=== PATIENT | female | born 1990 | race Caucasian/White ===

== ENCOUNTER 2016-09-02 11:42 | Emergency (ER) | payer MEDICAID ==
[2016-09-02 12:01] VITALS: BP 129/67; PULSE 109
[2016-09-02] MEDS ORDERED: DECADRON 10MG INJ. IM ONE (12:10)
[2016-09-02] MEDS ORDERED: TYLENOL 325 MG PO ONE (12:10)
[2016-09-02] MEDS ORDERED: TYLENOL 325 MG ONE (12:14)
[2016-09-02] MEDS ORDERED: DECADRON 10MG INJ. ONE (12:15)
--- NOTE | 2016-09-02 12:17 | ERPHSYRPT ---
- History of Present Illness Time Seen by Provider: 09/02/16 11:52 Source: patient Patient Subjective Stated Complaint: PT STATES SHE HAS HAD SCIATIC BACK PAIN IN THE PAST AND IS CONCERNED THAT IS HER PROBLEM TODAY. PT STATES SHE IS 7 MONTHS . DENIES ANY INJURY, DENIES ANY DYSURIA. Triage Nursing Assessment: PT PINK, WARM, DRY. UTERUS NOTED. NO DEFORMITIES TO BACK. PT AMBULATED INTO ER PUSHING A BABY STROLLER WITHOUT DIFFICULTY. Physician History: CC: back pain Hx: 25 y/o patient of Dr Mcelroy recently moved here from [place]. Saw Dr Mcelroy last week and is 25 weeks . She has hx of sciatica in the past. She has sharp shooting low back pain to right leg worse with movement since last night similar to prior sciatica. She has not taken any medication. In the past steroids helped. No vaginal bleeding, CTX, dysuria, hematuria, or sign of related problem. Timing/Duration: yesterday Fever Severity: severe Allergies/Adverse Reactions: No Known Drug Allergies Allergy (Unverified 09/02/16 12:01) Home Medications: Vits W-Ca,Fe,FA(<1Mg) [] 1 each PO DAILY 09/02/16 [History] Hx Tetanus, Diphtheria Vaccination/Date Given: Yes (UNKNOWN) Hx Influenza Vaccination/Date Given: No Hx Pneumococcal Vaccination/Date Given: No Immunizations Up to Date: Yes - Review of Systems Constitutional: No Fever, No Chills Eyes: No Symptoms Ears, Nose, & Throat: No Symptoms Respiratory: No Cough Cardiac: No Chest Pain Abdominal/Gastrointestinal: No Abdominal Pain, No Nausea, No Vomiting Genitourinary Symptoms: No Dysuria, No Hematuria, No Incontinence, No Flank Pain Musculoskeletal: Back Pain Skin: No Rash Neurological: No Focal Weakness All Other Systems: Reviewed and Negative - Past Medical History Pertinent Past Medical History: No - Past Surgical History Past Surgical History: No - Social History Smoking Status: Current every day smoker How long have you smoked: 8 Exposure to second hand smoke: No Drug Use: none Patient Lives Alone: No - Female History Hx Last Menstrual Period: MAR 03 2016 Expected Date of Delivery: 12/10/16 Gestational Age: 7 - Nursing Vital Signs Nursing Vital Signs: Initial Vital Signs Temperature 98.1 F Temperature Source Oral Pulse Rate 109 Respiratory Rate 18 Blood Pressure [Right Arm] 129/67 Pain Intensity [Right Lower 4 Back] Pain Intensity 4 - Physical Exam General Appearance: alert Eye Exam: PERRL/EOMI ENT Exam: normal ENT inspection Neck Exam: normal inspection, non-tender, supple Respiratory Exam: normal breath sounds, lungs clear Cardiovascular/Chest Exam: regular rate/rhythm Gastrointestinal/Abdominal Exam: soft, no distention Neurologic Exam: alert, oriented x 3, cooperative, sensation nml, other (2+ patellar MSR's bilateral), No motor deficits Skin Exam: warm, dry, No rash Comments: right lowback tender to palpation. - Course Nursing assessment & vital signs reviewed: Yes Ordered Tests: Active Orders 24 hr Category Date Time Status Clean Catch Urine Specimen STAT Care 09/02/16 12:09 Active Heart Tones-ED STAT Care 09/02/16 12:09 Active UA Stat Lab 09/02/16 12:09 Completed Medication Summary Discontinued Medications Generic Name Dose Route Start Last Admin Trade Name Darriusq PRN Reason Stop Dose Admin Acetaminophen 650 mg 09/02/16 12:10 09/02/16 12:16 Tylenol 325 Mg PO 09/02/16 12:11 650 mg STAT ONE Administration Acetaminophen Confirm 09/02/16 12:14 Tylenol 325 Mg Administered 09/02/16 12:15 Dose 650 mg .ROUTE .STK-MED ONE Dexamethasone Sodium Phosphate 10 mg 09/02/16 12:10 09/02/16 12:16 Decadron 10mg Inj. IM 09/02/16 12:11 10 mg STAT ONE Administration Dexamethasone Sodium Phosphate Confirm 09/02/16 12:15 Decadron 10mg Inj. Administered 09/02/16 12:16 Dose 10 mg .ROUTE .STK-MED ONE Lab/Rad Data: Laboratory Results 09/02/16 Range/Units 12:09 Ur Collection Type CLEAN CATCH Urine Color YELLOW (YELLOW) Urine Appearance CLOUDY (CLEAR) Urine pH 6.0 (5-6) Ur Specific [place] 1.025 (1.005-1.025) Urine Protein NEGATIVE (Negative) Urine Glucose (UA) NEGATIVE (NEGATIVE) mg/dL Urine Ketones NEGATIVE (NEGATIVE) Urine Nitrite NEGATIVE (NEGATIVE) Urine Bilirubin NEGATIVE (NEGATIVE) Urine Urobilinogen 1 (0-1) mg/dL Urine WBC (Auto) NEGATIVE (NEGATIVE) Urine RBC (Auto) NEGATIVE (0-5) River/ul Specimen Received 09/02/16 1220 - Progress Progress Note: 09/02/16 12:17 Will check urine. Advised see Dr Mcelroy to consider physical therapy. APAP decadron given here. 09/02/16 12:32 Back viktoriya instr given. Counseled pt/family regarding: lab results, diagnosis, need for follow-up - Departure Time of Disposition: 12:32 Departure Disposition: Home Clinical Impression: Sciatica, 25 weeks gestation of Condition: Stable Critical Care Time: No Referrals: DREW MORALES MD [Primary Care Provider] - JUAN MCELROY [ACTIVE STAFF] - Instructions: Back Pain With Sciatica, -- Discomforts and Remedies Additional Instructions: Take acetaminophen 650mg every 6 hours for pain. Warm or cool compresses. CAll to see Dr Mcelroy tomorrow. Return for contractions, vaginal bleeding or concerns.
[2016-09-02 12:29] LABS: COMPLETE URINE MICROSCOPIC? NO; Collection Type CLEAN CATCH
== END 2016-09-02 12:50 | disposition home or self-care (01) ==
LOC: ED 11:42
DX: M54.30 Sciatica, unspecified side (principal); Z33.1 Pregnant state, incidental; Z3A.25 25 weeks gestation of pregnancy
CPT/HCPCS: 81002; 96372; 99284; J1100; A9270-GY

== ENCOUNTER 2016-11-08 17:46 | Observation (INO) | payer MEDICAID ==
[2016-11-08 18:22] LABS: Bilirubin NEGATIVE (NEGATIVE); Blood NEGATIVE Ery/ul (0-5); COMPLETE URINE MICROSCOPIC? NO; Collection Type CLEAN CATCH; Glucose NEGATIVE (NEGATIVE); Leukocyte Esterase NEGATIVE (NEGATIVE)
[2016-11-08] MEDS ORDERED: Sodium Chloride 0.9% 1000 ML 1,000 ML IV STA (19:36)
[2016-11-08] MEDS ORDERED: Sodium Chloride 0.9% 1000 ML 1,000 ML ONE (19:40)
[2016-11-08 20:48] VITALS: BP 124/74; PULSE 84; O2SAT 99
[2016-11-08] MEDS ORDERED: TUCKS TP PRN (21:17)
== END 2016-11-08 22:31 ==
LOC: OB 17:46 → UNDOADMOB 17:46 → UNDODISOB 22:31
PROVIDERS: ADMIT Family Medicine; ATTEND Family Medicine
DX: Z34.83 Encounter for supervision of other normal pregnancy, third trimester (principal)
CPT/HCPCS: 80307; 81002; 87081; A9270-GY

== ENCOUNTER 2016-11-13 10:54 | Observation (INO) | payer MEDICAID ==
[2016-11-13 11:29] VITALS: BP 120/71; PULSE 93
== END 2016-11-13 12:25 | disposition home or self-care (01) ==
LOC: OB 10:54
PROVIDERS: ADMIT Family Medicine; ATTEND Family Medicine
DX: Z34.83 Encounter for supervision of other normal pregnancy, third trimester (principal)
CPT/HCPCS: 59025; G0378

== ENCOUNTER 2016-11-27 12:54 | Observation (INO) | payer MEDICAID ==
[2016-11-27 13:36] VITALS: BP 131/82; PULSE 88
--- NOTE | 2016-11-27 14:06 | XRAY ---
Indication: Decreased movement. Gestational age 35 weeks 6 days. Doppler ultrasound of the umbilical cord was performed. PSV is 45-59 cm/s. PDV is 18-23 cm/s. Systolic/diastolic ratio is 2.2-2.8 (50th percentile is 2.39 and 95th percentile is 3.41).
== END 2016-11-27 15:15 | disposition home or self-care (01) ==
LOC: OB 12:54
PROVIDERS: ADMIT Family Medicine; ATTEND Family Medicine
DX: Z34.83 Encounter for supervision of other normal pregnancy, third trimester (principal)
CPT/HCPCS: 59025; 76815; G0378

== ENCOUNTER 2017-03-04 10:37 | Day surgery (SDC) | payer MEDICAID, OTHER ==
--- NOTE | 2017-03-04 08:33 | HP ---
DATE OF SURGERY: 03/04/2017 HISTORY OF PRESENT ILLNESS: The patient is a 26 year-old who has four kids and undesired fertility. She desires tubal at this time. PAST MEDICAL HISTORY: She had pain right leg in the past. PAST SURGICAL HISTORY: Dental. MEDICATIONS: Ibuprofen. She had been on hydrocodone recently. ALLERGIES: NKDA. FAMILY HISTORY: History of congestive heart failure, kidney failure, chronic obstructive pulmonary disease, diabetes. SOCIAL HISTORY: Less than a pack per day smoker. Denies alcohol use. REVIEW OF SYSTEMS: Twelve systems reviewed per admission assessment. No chest pain or palpitations other systems negative or noncontributory as above and per preadmission questionnaire. PHYSICAL EXAMINATION: GENERAL: No acute distress. HEENT: Sclerae nonicteric. NECK: No JVD. CHEST: Equal excursion, nonlabored breathing. CVS: Regular rate and rhythm. ABDOMEN: Soft. No peritoneal signs. EXTREMITIES: No significant edema. NEURO: Alert, moving extremities symmetrically. No gross motor deficits noted. IMPRESSION: Undesired fertility. The patient desires laparoscopic bilateral tubal cauterization. She was explained the procedure in detail but not limited to risk of bleeding, infection, risk of trocar injury or hernia, small risk of bowel, bladder or blood vessel injury or ureter injury possibly requiring other procedures, risk of scar formation, adhesions or obstruction. She understands short of removing her uterus and ovaries, bilateral tubal performed with ligating, clipping, cauterizing there is up to 4% risk of tubal failure rate. Should she feel she is down the road she should check and she completely understands this. She understands that this tubal is successful which it is the majority of the time would be permanent but could consider reversal if she changes her mind down the road. Our group does not do tubal reversals but we could refer her to another physician if she changed her mind. She understands as well as general risk of anesthesia, deep venous thrombosis, pulmonary embolism, pneumonia but not limited to, possible need to convert to open. She understands all the above but not limited to, will proceed with laparoscopic bilateral tubal cauterization possible open.
[~2017-03-04 10:37] MED LIST: CEFAZOLIN 2 GM-D5W BAG** 2 GM/50 ML ML IV ONE; CEFAZOLIN 2 GM-D5W BAG** 2 GM/50 ML ML IV SCH; Lactated Ringers 1,000 ML IV ONE; Lactated Ringers 1,000 ML IV SCH; Sensorcaine 0.25% 10 ML ONE
[2017-03-04] MEDS ORDERED: SUBLIMAZE 100 MCG/2 ML IV ONE (10:38)
[2017-03-04] MEDS ORDERED: TORAdol 30 mg Injection IV ONE (10:38)
[2017-03-04] MEDS ORDERED: Zemuron 100 MG/10 ML IV ONE (10:38)
[2017-03-04] MEDS ORDERED: Zofran 4 MG/2 ML VIAL IV ONE (10:38)
[2017-03-04] MEDS ORDERED: Quelicin Fliptop 200 MG/10 ML IV ONE (10:38)
[2017-03-04] MEDS ORDERED: Decadron 4 MG INJ IV ONE (10:38)
[2017-03-04] MEDS ORDERED: Versed 2 MG/2 ML Injection IV ONE (10:38)
[2017-03-04] MEDS ORDERED: BRIDION 200MG/2ML IV ONE (10:38)
[2017-03-04] MEDS ORDERED: DIPRIVAN 200 MG/20 ML IV ONE (10:38)
[2017-03-04] MEDS ORDERED: SUBLIMAZE 100 MCG/2 ML ONE (13:51)
[2017-03-04] MEDS ORDERED: Zofran 4 MG/2 ML VIAL ONE (13:51)
--- NOTE | 2017-03-04 14:56 | OP ---
SURGERY DATE/TIME: 03/04/2017 1241 PREOPERATIVE DIAGNOSIS: Undesired fertility. POSTOPERATIVE DIAGNOSIS: Undesired fertility. PROCEDURE: Laparoscopic bilateral tubal coagulation and cauterization. SURGEON: Dr. Anthony Heath. ANESTHESIA: General. ESTIMATED BLOOD LOSS: Minimal. INDICATIONS: As noted above. Risks and benefits explained in detail and not limited to and consent obtained. DESCRIPTION OF PROCEDURE AND FINDINGS: The patient is taken to the operating room. General anesthesia was introduced. Abdomen prepped and draped in usual sterile fashion. After official time out and no disagreement with planned procedure, a transverse incision made at supraumbilical area. Fascia grasped and pulled upwards. Veress needle inserted and tested with saline. Pneumoperitoneum accomplished. Insufflating opening pressure 0 to 15. A 5 mm bladeless port and camera were inserted without difficulty. There was no evidence of any intra-abdominal injury secondary to trocar insertion. It should be noted that the patient did have some serosanguinous fluid down in the pelvis. She apparently had a hemorrhagic ruptured left ovarian cyst with some hemorrhagic fluid. The 5 mm right lower quadrant and 5 mm left lower quadrant ports were placed. The uterus is elevated upwards elevating the tube well away from the pelvic side wall and viscera. Initially planned to use Kleppinger however it was not functional so the next best option would be the LigaSure device. The LigaSure device was then used to seal coagulate the tube across 4 cm segment of the tube elevating it well away from the retroperitoneum well away from the pelvic side wall and viscera. It took some time but it was slowly and carefully accomplished. This was again repeated on the left side. Pictures were taken. Bilateral tubal cauterization coagulation had been accomplished. The small hemorrhagic fluid that was there prior to the procedure had been irrigated out, washed out and good hemostasis noted. Pneumoperitoneum decompressed. The port is removed. Skin incision closed with 4-0 Vicryl. 0.25% Marcaine local injected along the skin incision fascial defects. The patient tolerated the procedure well. There were no immediate complications. It should be noted that there was no family available to discuss the findings with out in the waiting area.
[2017-03-04 15:41] VITALS: BP 112/60; PULSE 64; O2SAT 94
== END 2017-03-04 15:50 | disposition home or self-care (01) ==
LOC: SDC 10:37
PROVIDERS: ATTEND Surgery
PROC: 0U574ZZ Destruction of Bilateral Fallopian Tubes, Percutaneous Endoscopic Approach (ICD-10-PCS; principal; 2017-03-04)
DX: Z30.2 Encounter for sterilization (principal)
CPT/HCPCS: 00851; 84703; J0330; J0690; J1100; J1885; J2250; J2405; J2704; J3010

== ENCOUNTER 2017-05-24 13:54 | Emergency (ER) | payer OTHER ==
[2017-05-24 14:17] VITALS: O2SAT 98
[2017-05-24] MEDS ORDERED: TYLENOL 325 MG PO ONE (14:45)
[2017-05-24] MEDS ORDERED: TYLENOL 325 MG ONE (14:49)
--- NOTE | 2017-05-24 14:52 | ERPHSYRPT ---
- History of Present Illness Time Seen by Provider: 05/24/17 14:43 Source: patient Exam Limitations: no limitations Patient Subjective Stated Complaint: pt states she has had a sorethroat x 1 day. throat red with exudate. pt also c/o back pain. denies any fever. denies any dysuria. states back always hurts off and on regulary. 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 Triage Nursing Assessment: pt pink, warm, dry. thraot red with exudate. pt ambulated into Er without difficulty. no deformity noted to back. Physician History: This is a 26-year-old white female who states she has negative past medical history . She states that she is having a sore throat since yesterday. No fevers no vomiting she states she is having pain in her back no urinary symptoms. 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 Past medical history negative. Past surgical history tubal ligation. Timing/Duration: yesterday Severity: moderate Modifying Factors: Improves With: nothing Associated Symptoms: other (sore throat), No nausea, No vomiting, No abdominal pain, No shortness of breath, No heartburn, No diaphoresis, No cough, No chills , No chest pain, No fever, No headaches, No loss of appetite, No malaise, No rash, No syncope, No seizure, No weakness Allergies/Adverse Reactions: No Known Drug Allergies Allergy (Verified 05/24/17 14:18) Home Medications: Ibuprofen 800 mg PO UD 02/27/17 [History] Hx Tetanus, Diphtheria Vaccination/Date Given: Yes (up to date) Hx Influenza Vaccination/Date Given: No Hx Pneumococcal Vaccination/Date Given: No Immunizations Up to Date: Yes - Review of Systems Constitutional: No Fever, No Chills Eyes: No Symptoms Ears, Nose, & Throat: Throat Pain, No Ear Pain, No Ear Discharge, No Hearing Changes, No Tinnitus, No Nose Pain, No Nose Congestion, No Nose Discharge, No Sinus Drainage, No Epistaxis, No Mouth Pain, No Mouth Swelling, No Loose Teeth, No Throat Swelling, No Hoarse, No Painful Swallowing, No Snoring, No Stridor Respiratory: No Cough, No Dyspnea Cardiac: No Chest Pain, No Edema, No Syncope Abdominal/Gastrointestinal: No Abdominal Pain, No Nausea, No Vomiting, No Diarrhea Genitourinary Symptoms: No Dysuria Musculoskeletal: Back Pain Skin: No Rash Neurological: No Dizziness, No Focal Weakness, No Sensory Changes Psychological: No Symptoms Endocrine: No Symptoms All Other Systems: Reviewed and Negative - Past Medical History Pertinent Past Medical History: Yes Neurological History: Migraines ENT History: No Pertinent History Cardiac History: No Pertinent History Respiratory History: No Pertinent History Endocrine Medical History: No Pertinent History Musculoskeletal History: Other GI Medical History: No Pertinent History History: No Pertinent History Psycho-Social History: No Pertinent History Female Reproductive Disorders: No Pertinent History Other Medical History: chronic back back pain - Past Surgical History Past Surgical History: Yes Neuro Surgical History: No Pertinent History Cardiac: No Pertinent History Respiratory: No Pertinent History Gastrointestinal: No Pertinent History Genitourinary: No Pertinent History Musculoskeletal: No Pertinent History Female Surgical History: Tubal Ligation - Social History Smoking Status: Current every day smoker How long have you smoked: 9 Exposure to second hand smoke: No Drug Use: none Patient Lives Alone: No - Female History Hx Last Menstrual Period: 2017 Hx Now: No - Nursing Vital Signs Nursing Vital Signs: Initial Vital Signs Temperature 99.5 F 05/24/17 14:07 Pulse Rate 99 H 05/24/17 14:07 Respiratory Rate 20 05/24/17 14:07 Blood Pressure 134/73 05/24/17 14:07 O2 Sat by Pulse Oximetry 98 05/24/17 14:07 Pain Scale Pain Intensity 8 - Physical Exam General Appearance: mild distress Eye Exam: PERRL/EOMI, eyes nml inspection Ears, Nose, Throat Exam: TMs normal, pharyngeal erythema, No pharynx normal ( throat erythematous) Neck Exam: normal inspection, non-tender, supple, full range of motion Respiratory Exam: normal breath sounds, lungs clear, No respiratory distress Cardiovascular Exam: regular rate/rhythm, normal heart sounds, normal peripheral pulses Gastrointestinal/Abdomen Exam: soft, normal bowel sounds, No tenderness, No mass Back Exam: other (mild tenderness with palpation entire back midline, ffull range of motion to back in all extremities, aable to sit with hips flexedto 90 degrees and both knees extended without distress) Extremity Exam: normal inspection, normal range of motion, pelvis stable Neurologic Exam: alert, oriented x 3, cooperative, normal mood/affect, nml cerebellar function, nml station & gait, sensation nml, No motor deficits Skin Exam: normal color, warm, dry, No rash SpO2 Interpretation: normal (98%) SpO2: 98 Oxygen Delivery: Room Air Ordered Tests: Active Orders 24 hr Category Date Time Status STREP SCREEN-BETA A Stat Lab 05/24/17 14:35 Completed Medication Summary Discontinued Medications Generic Name Dose Route Start Last Admin Trade Name Freq PRN Reason Stop Dose Admin Acetaminophen 650 mg 05/24/17 14:45 05/24/17 14:50 Tylenol 325 Mg PO 05/24/17 14:46 650 mg STAT ONE Administration Acetaminophen Confirm 05/24/17 14:49 Tylenol 325 Mg Administered 05/24/17 14:50 Dose 650 mg .ROUTE .STSpaBoom-MED ONE Lab/Rad Data: Laboratory Results 05/24/17 Range/Units 14:35 Streptococcus Screen POSITIVE (Negative) - Progress Progress: improved Progress Note: 05/24/17 15:09 Patient with strep throat. Will write for amoxicillin and [place] for pain. Patient denies any problem with narcotic substances I've reviewed inspect report she is only really received 2 prescriptions of a small amount of narcotics over the past year. - Departure Time of Disposition: 15:10 Departure Disposition: Home Clinical Impression: Strep pharyngitis, Throat pain Back pain Qualifiers: Back pain location: back pain in unspecified location Chronicity: unspecified Back pain laterality: midline Qualified Code(s): M54.89 - Other dorsalgia Condition: Fair Critical Care Time: No Referrals: JUAN PHOENIX [Primary Care Provider] - Instructions: Strep Throat (DC) Additional Instructions: Return home. Amoxicillin 500 mg orally 3 times a day for 10 days. Plenty of fluids. [place] 5/325 one orally every 4-6 hours as needed for pain #12. Follow-up with your family symptoms are worse, no better in 48 hours, or persist longer than one week. Return for acute distress or for severe symptoms. Prescriptions: Amoxicillin 500 mg PO TID #30 capsule Hydrocodone/Acetaminophen [[place] 5-325 Tablet] 1 tab PO Q4-6HPRN PRN #12 tablet MDD 6 tablets PRN Reason: pain
[2017-05-24 15:16] VITALS: BP 100/70; PULSE 92
== END 2017-05-24 15:27 | disposition home or self-care (01) ==
LOC: ED 13:54
DX: J02.0 Streptococcal pharyngitis (principal); M54.89 Other dorsalgia; Z79.4 Long term (current) use of insulin
CPT/HCPCS: 87430; 99283; A9270-GY

== ENCOUNTER 2017-05-26 00:19 | Emergency (ER) | payer OTHER ==
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
[2017-05-26] MEDS ORDERED: NORCO 5/325 MG ONE (02:12)
[2017-05-26] MEDS: NORCO 5/325 MG PO ONE ×2 (02:14)
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
== END 2017-05-26 02:20 | disposition home or self-care (01) ==
LOC: ED 00:19
PROC: 2W3CX1Z Immobilization of Right Lower Arm using Splint (ICD-10-PCS; principal; 2017-05-26)
DX: S63.91XA Sprain of unspecified part of right wrist and hand, initial encounter (principal); W22.09XA Striking against other stationary object, initial encounter; Z72.0 Tobacco use
CPT/HCPCS: 29126; 73110; 73130; 99283; A9270-GY

== ENCOUNTER 2017-08-16 08:28 | Emergency (ER) | payer OTHER ==
--- NOTE | 2017-08-16 09:23 | ERPHSYRPT ---
- History of Present Illness Time Seen by Provider: 08/16/17 08:45 Source: patient Patient Subjective Stated Complaint: Uncontrolled vaginal bleeding Triage Nursing Assessment: Pt presents to the ED with complaints of uncontrolled vaginal bleeding. Pt states onset x2 days. Pt states she woke up this AM with large amounts of blood present. Pt states cramping present but denies otehr complaints. Pt is A&O x4, no distress noted, skin PWD. Physician History: PATIENT COMPLAINS OF HEAVY VAGINAL BLEEDING X 2-3 DAYS ASSOCIATED WITH CRAMPY ABDOMINAL PAIN. DENIES FEVER, URINARY SYMPTOMS, NAUSEA OR EMESIS. STATES LAST MENSTRUAL PERIOD 1 MONTH AGO. HAS HAD HEAVIER MENSES SINCE TUBAL LIGATION FEB 2018. DENIES DIZZINESS OR WEAKNESS. Timing/Duration: today Activites at Onset: none Quality: other (HEAVY VAGINAL BLEEDING) Modifying Factors: Improves With: nothing Associated Symptoms: other (CRAMPY ABDOMINAL PAIN) Allergies/Adverse Reactions: No Known Drug Allergies Allergy (Verified 05/26/17 00:32) Hx Tetanus, Diphtheria Vaccination/Date Given: Yes Hx Influenza Vaccination/Date Given: Yes Hx Pneumococcal Vaccination/Date Given: No - Review of Systems Constitutional: No Fever, No Chills Eyes: No Symptoms Ears, Nose, & Throat: No Symptoms Respiratory: No Symptoms, No Cough, No Dyspnea Cardiac: No Symptoms, No Chest Pain, No Edema, No Syncope Abdominal/Gastrointestinal: No Abdominal Pain, No Nausea, No Vomiting, No Diarrhea Genitourinary Symptoms: Vaginal Bleeding, No Dysuria Musculoskeletal: No Symptoms, No Back Pain, No Neck Pain Skin: No Rash Neurological: No Dizziness, No Focal Weakness, No Sensory Changes Psychological: No Symptoms Endocrine: No Symptoms All Other Systems: Reviewed and Negative - Past Medical History Pertinent Past Medical History: Yes Neurological History: Migraines ENT History: No Pertinent History Cardiac History: No Pertinent History Respiratory History: No Pertinent History Endocrine Medical History: No Pertinent History Musculoskeletal History: Other GI Medical History: No Pertinent History History: No Pertinent History Psycho-Social History: No Pertinent History Female Reproductive Disorders: No Pertinent History Other Medical History: chronic back back pain - Past Surgical History Past Surgical History: Yes Neuro Surgical History: No Pertinent History Cardiac: No Pertinent History Respiratory: No Pertinent History Gastrointestinal: No Pertinent History Genitourinary: No Pertinent History Musculoskeletal: No Pertinent History Female Surgical History: Tubal Ligation - Social History Smoking Status: Current every day smoker How long have you smoked: 10 years Exposure to second hand smoke: Yes Drug Use: none Patient Lives Alone: No - Female History Hx Last Menstrual Period: 08/14/2017 Hx Now: No - Nursing Vital Signs Nursing Vital Signs: Initial Vital Signs Temperature 97.7 F 08/16/17 08:35 Pulse Rate 83 08/16/17 08:35 Respiratory Rate 16 08/16/17 08:35 Blood Pressure 129/69 08/16/17 08:35 O2 Sat by Pulse Oximetry 97 08/16/17 08:35 Pain Scale Pain Intensity 4 - Physical Exam General Appearance: no apparent distress, alert Eye Exam: PERRL/EOMI, eyes nml inspection Ears, Nose, Throat Exam: normal ENT inspection, TMs normal, pharynx normal, moist mucous membranes Neck Exam: normal inspection, non-tender, supple, full range of motion Respiratory Exam: normal breath sounds, lungs clear, No respiratory distress Cardiovascular Exam: regular rate/rhythm, normal heart sounds, normal peripheral pulses Gastrointestinal/Abdomen Exam: soft, normal bowel sounds (NONTENDERNESS), No tenderness, No mass Pelvic Exam: normal external exam, adnexal mass, vaginal bleeding (MINIMAL BLEEDING VAGINAL VAULT, NORMAL UTERINE SIZE, NO ADNEXAL TENDERNESS) Back Exam: normal inspection, normal range of motion, No CVA tenderness, No vertebral tenderness Extremity Exam: normal inspection, normal range of motion, pelvis stable Neurologic Exam: alert, oriented x 3, cooperative, stucco applicator II-XII nml as tested, normal mood/affect, sensation nml, No motor deficits Skin Exam: normal color, warm, dry Lymphatic Exam: No adenopathy SpO2: 97 Oxygen Delivery: Room Air Ordered Tests: Active Orders 24 hr Category Date Time Status Orthostatic Vital Signs STAT Care 08/16/17 08:50 Active CBC W DIFF Stat Lab 08/16/17 09:17 Ordered UA W/RFX UR CULTURE Stat Lab 08/16/17 09:24 Ordered Wet Prep Stat Lab 08/16/17 09:18 Ordered - Departure Time of Disposition: 09:55 Departure Disposition: Home Clinical Impression: DYSFUNCTIONAL UTERINE BLEEDING Condition: Stable Critical Care Time: No Referrals: JUAN PHOENIX [Primary Care Provider] - Additional Instructions: BEGIN ORTHO NOVUM 1 TABLET 4 TIMES DAILY FOR 7 DAYS FOR TREATMENT OF HEAVY VAGINAL BLEEDING. CONSULT YOUR PRIMARY CARE PROVIDER AND WOOD HANDLER FOR FOLLOWUP. RETURN TO EMERGENCY ROOM FOR PERSISTENT SYMPTOMS. Prescriptions: Norethindrone-Ethinyl Estrad [Ortho-Novum] 1 each PO QID #28 tablet
[2017-08-16 09:30] LABS: Appearance CLEAR (CLEAR); Bilirubin NEGATIVE (NEGATIVE); Blood NEGATIVE Ery/ul (0-5); Glucose NEGATIVE (NEGATIVE); Ketones NEGATIVE (NEGATIVE); Leukocyte Esterase NEGATIVE (NEGATIVE); Nitrite NEGATIVE (NEGATIVE); Protein,Urine Dip NEGATIVE (Negative); Specific Gravity 1.005 (1.005-1.025); Urobilinogen NORMAL mg/dL (0-1)
[2017-08-16 09:30] LABS: Bacteria Few; Clue Cells None Seen; Red Blood Cells None Seen; Trichomonas None Seen; White Blood Cells Rare
[2017-08-16 09:38] LABS: Granulocyte Absolute (ANC) 3.99 (1.4-6.9); Hematocrit 41.4 % (35-47); Hemoglobin 13.4 gm/dl (12.0-16.0); Mean Cell Volume 84.7 fl (78-100); Mean Corpuscular Hemoglobin 27.4 pg (26-32); Mean Corpuscular Hgb Concent. 32.4 g/dl (32-36); Mean Platelet Volume 11.6 fl (6-9.5); Platelet Count 177 K/mm3 (150-450); Red Blood Count 4.89 M/mm3 (4.1-5.4); Red Cell Distribution Width 14.2 % (11.5-14.0); White Blood Count 6.7 K/mm3 (4.0-10.5)
[2017-08-16 10:06] VITALS: BP 120/79; PULSE 68; O2SAT 99
[2017-08-16 10:38] LABS: Eosinophil 1 % (0.00-3.0); Lymphocytes 30 % (24-44); Monocyte 9 % (0.0-12.0); Neutrophils 60 % (36.0-66.0); Platelet Estimate NORMAL (NORMAL); Total Cells Counted 100
== END 2017-08-16 10:06 | disposition home or self-care (01) ==
LOC: ED 08:28
DX: N93.8 Other specified abnormal uterine and vaginal bleeding (principal)
CPT/HCPCS: 36415; 81002; 85025; 87210; 87490; 87590; 99284; P9612; 99283